=== PATIENT | male | born 1965 | race Hispanic/Latino ===

== ENCOUNTER 2017-05-21 23:02 | Observation (INO) | payer OTHER ==
[2017-05-21 23:51] VITALS: BMI 29.1
--- NOTE | 2017-05-22 00:22 | ED PDOC ---
Arrival/HPI - General Chief Complaint: Trauma Time Seen by Provider: 05/22/17 00:16 Historian: Patient - History of Present Illness Narrative History of Present Illness (Text): 05/22/17 00:22 Jean Marie Angeles is a 52 year old male, whose past medical history includes COPD, hypertension, CAD, and alcohol abuse, who presents to the Emergency department complaining of right rib pain. Patient states 6 days he "blacked out," fell on to the concrete on his right side, and hit his head. [place] [facility] [place], had CT Head performed, juan placed for a head injury, and discharged home. Patient states he woke up the next day with right lateral rib pain, which has progressively worsened over the past 5 days. Patient states pain is worse with movement, coughing, and deep inspiration. Patient states he took 2 Tramadol at home today without any significant relief. Patient denies any nausea, vomiting, diarrhea, urinary symptoms, back pain, neck pain, vision changes, focal neurological deficits, headache, dizziness, or any other complaints. Symptom Onset: Gradual Symptom Course: Worsening Activities at Onset: Rest, Light Context: Home Past Medical History - Provider Review Nursing Documentation Reviewed: Yes - Infectious Disease Hx of Infectious Diseases: None - Tetanus Immunization Tetanus Immunization: Unknown - Past Medical History Past Medical History: No Previous - Cardiac Hx Hypertension: Yes - Pulmonary Hx Asthma: Yes Hx Chronic Obstructive Pulmonary Disease (COPD): Yes - Musculoskeletal/Rheumatological Hx Degenerative Joint Disease: Yes Hx Falls: Yes - Psychiatric Hx Depression: No Hx Emotional Abuse: No Hx Physical Abuse: No Hx Substance Use: No - Surgical History Hx Appendectomy: Yes Other/Comment: L hand srugery - Anesthesia Hx Anesthesia: Yes Hx Anesthesia Reactions: No Hx Malignant Hyperthermia: No - Suicidal Assessment Feels Threatened In Home Enviroment: No Family/Social History - Physician Review Nursing Documentation Reviewed: Yes Family/Social History: Unknown Family HX Smoking Status: Heavy Smoker > 10 Cigarettes Daily Hx Alcohol Use: Yes (beer) Frequency of alcohol use: Socially Hx Substance Use: No Hx Substance Use Treatment: No Allergies/Home Meds Allergies/Adverse Reactions: Allergies No Known Allergies Allergy (Verified 05/28/13 21:23) Home Medications: Home Meds Medication Instructions Recorded Confirmed Albuterol HFA [Ventolin HFA 90 1 puff IH DAILY 06/16/14 09/26/14 mcg/actuation (8 g)] Aspirin 81 mg PO DAILY 06/16/14 09/26/14 Cilostazol [Cilostazol] 50 mg PO DAILY 06/16/14 09/26/14 Clopidogrel [Plavix] 75 mg PO DAILY 06/16/14 09/26/14 Diltiazem Hydrochloride [Diltiazem 120 mg PO DAILY 06/16/14 09/26/14 Cd] Fluticasone Nasal [Flonase] 1 spray IH DAILY 06/16/14 09/26/14 Lisinopril/Hydrochlorothiazide 1 tab PO DAILY 06/16/14 09/26/14 [Lisinopril-Hctz 20-12.5 mg Tab] Loratadine 10 mg PO DAILY 06/16/14 09/26/14 Omeprazole 20 mg PO DAILY 06/16/14 09/26/14 Tiotropium [place] [Spiriva] 18 mcg IH DAILY 06/16/14 09/26/14 Review of Systems - Physician Review All systems were reviewed & negative as marked: Yes - Review of Systems Constitutional: Normal. absent: Fevers Eyes: Normal ENT: Normal Cardiovascular: Other (+right lateral rib pain) Gastrointestinal: Normal. absent: Abdominal Pain, Diarrhea, Nausea, Vomiting Genitourinary Male: Normal. absent: Dysuria, Frequency, Hematuria, Urinary Output Changes Musculoskeletal: Normal. absent: Back Pain, Neck Pain Skin: Normal. absent: Rash Neurological: Normal. absent: Headache, Dizziness Endocrine: Normal Hemo/Lymphatic: Normal Psychiatric: Normal Physical Exam Vital Signs Reviewed: Yes Vital Signs Temp Pulse Resp BP Pulse Ox 05/22/17 05:02 76 16 154/70 H 97 05/22/17 02:20 79 16 175/99 H 99 05/21/17 23:54 97.7 F 97 H 18 224/131 H 97 Temperature: Afebrile Blood Pressure: Hypertensive Pulse: Regular Respiratory Rate: Normal Appearance: Positive for: Well-Appearing, Non-Toxic, Comfortable Mental Status: Positive for: Alert and Oriented X 3 - Systems Exam Head: Present: Atraumatic, Normocephalic Pupils: Present: PERRL Extroacular Muscles: Present: EOMI Conjunctiva: Present: Normal Mouth: Present: Moist Mucous Membranes Neck: Present: Normal Range of Motion Respiratory/Chest: Present: Clear to Auscultation, Good Air Exchange, Tender to Palpation (Right lateral rib tenderness to palpation). No: Respiratory Distress , Accessory Muscle Use Cardiovascular: Present: Regular Rate and Rhythm, Normal S1, S2. No: Murmurs Abdomen: Present: Normal Bowel Sounds. No: Tenderness, Distention, Peritoneal Signs Back: Present: Normal Inspection Upper Extremity: Present: Normal Inspection. No: Cyanosis, Edema Lower Extremity: Present: Normal Inspection. No: Edema Neurological: Present: GCS=15, CN II-XII Intact, Speech Normal Skin: Present: Warm, Dry, Normal Color. No: Rashes Psychiatric: Present: Alert, Oriented x 3, Normal Insight, Normal Concentration Medical Decision Making ED Course and Treatment: 05/22/17 00:22 Impression: 52 year old male complaining of right lateral rib pain for 5 days. Plan: -- EKG -- Chest X-ray -- XR Right Ribs -- Labs, cardiac enzymes, alcohol level -- Morphine -- Ativan -- Catapres -- Reassess and disposition Progress Notes: Please refer to downtime documentation. - Lab Interpretations Lab Results: 05/22/17 01:30 05/22/17 01:30 Lab Results 05/22/17 01:30: Alcohol, Quantitative 23 H 05/22/17 01:30: WBC 8.8 D, RBC 4.69, Hgb 16.1, Hct 45.0, MCV 95.9, MCH 34.3, MCHC 35.8, RDW 12.6, Plt Count 250, MPV 9.9 05/22/17 01:30: Sodium 133, Potassium 3.8, Chloride 96 L, Carbon Dioxide 22, Anion Gap 19, BUN 6 L, Creatinine 0.7, Est GFR ( Amer) > 60, Est GFR (Non -Af Amer) > 60, Random Glucose 100, Calcium 9.4, Total Bilirubin 0.8, AST 73 H, ALT 89 H, Alkaline Phosphatase 80, Lactate Dehydrogenase 668, Total Creatine Kinase 152, Troponin I < 0.01, Total Protein 8.1, Albumin 4.6, Globulin 3.6, Albumin/Globulin Ratio 1.3 05/22/17 01:30: PT 10.8, INR 1.00, APTT 26.0 - RAD Interpretation Radiology Orders: 05/22/17 00:22 CHEST PORTABLE [RAD] Stat 05/22/17 00:31 RIBS RIGHT [RAD] Stat - Medication Orders Current Medication Orders: Discontinued Medications Clonidine HCl (Catapres) 0.2 mg PO STAT STA Stop: 05/22/17 00:28 Folic Acid (Folic Acid) 1 mg PO DAILY [facility] Last Admin: 05/22/17 09:12 Dose: 1 mg Heparin Sodium (Porcine) (Heparin) 5,000 units SC Q8H PREETHI Last Admin: 05/22/17 16:51 Dose: 5,000 units Hydralazine HCl (Apresoline) 25 mg PO QID PRN PRN Reason: SBP >180 Last Admin: 05/22/17 16:51 Dose: 25 mg Hydrochlorothiazide (Hydrodiuril) 25 mg PO DAILY [facility] Last Admin: 05/22/17 09:08 Dose: 25 mg Ipratropium [place] (Atrovent) 0.5 mg IH [id number] [facility] Last Admin: 05/22/17 13:34 Dose: 0.5 mg Levalbuterol HCl (Xopenex) 0.63 mg IH [id number] [facility] Last Admin: 05/22/17 13:34 Dose: 0.63 mg Lorazepam (Ativan) 1 mg IVP ONCE ONE Stop: 05/22/17 00:25 Lorazepam (Ativan) 2 mg IVP Q4H PRN; Protocol PRN Reason: Anxiety Lorazepam (Ativan) 1 mg IVP Q4H PRN; Protocol PRN Reason: ALCOHOL WITHDRAWAL SYMPTONS Lorazepam (Ativan) 2 mg IVP Q4H PRN; Protocol PRN Reason: Anxiety Last Admin: 05/22/17 16:49 Dose: 2 mg Losartan Potassium (Cozaar) 100 mg PO DAILY [facility] Last Admin: 05/22/17 09:08 Dose: 100 mg Morphine Sulfate (Morphine) 4 mg IVP STAT STA Stop: 05/22/17 00:25 Morphine Sulfate (Morphine) 1 mg SC Q4 PRN PRN Reason: Pain, severe (8-10) Last Admin: 05/22/17 12:49 Dose: 1 mg Multivitamins (Thera Tab) 1 tab PO 0800 [facility] Last Admin: 05/22/17 07:58 Dose: 1 tab Nicotine (Nicoderm Cq) 1 patch TD DAILY [facility] Last Admin: 05/22/17 09:09 Dose: 1 patch Pantoprazole Sodium (Protonix Ec Tab) 40 mg PO DAILY [facility] Last Admin: 05/22/17 09:08 Dose: 40 mg Prednisone (Prednisone Tab) 40 mg PO DAILY [facility] Last Admin: 05/22/17 12:58 Dose: 40 mg Thiamine HCl (Vitamin B1 Tab) 100 mg PO DAILY [facility] Last Admin: 05/22/17 09:08 Dose: 100 mg Tramadol HCl (Ultram) 50 mg PO Q4H PRN PRN Reason: Pain, moderate (4-7) - Scribe Statement The provider has reviewed the documentation as recorded by the Hamzah Zaidi Provider Scribe Attestation: All medical record entries made by the Elvisibgerald were at my direction and personally dictated by me. I have reviewed the chart and agree that the record accurately reflects my personal performance of the history, physical exam, medical decision making, and the department course for this patient. I have also personally directed, reviewed, and agree with the discharge instructions and disposition. Disposition/Present on Arrival - Present on Arrival Any Indicators Present on Arrival: No History of DVT/PE: No History of Uncontrolled Diabetes: No Urinary Catheter: No History of Decub. Ulcer: No History Surgical Site Infection Following: None - Disposition Have Diagnosis and Disposition been Completed?: Yes Diagnosis: Alcohol withdrawal syndrome, Chest pain Disposition: HOSPITALIZED Disposition Time: 02:50 Condition: STABLE
[2017-05-22] MEDS ORDERED: Morphine 4 mg/ml ISec IVP STA (00:24)
[2017-05-22 06:05] VITALS: O2SAT 97
[2017-05-22 06:31] LABS: HEMOGLOBIN 16.1 gm/dL (14.0-18.0); MEAN CELL VOLUME 95.9 fL (80.0-105.0); MEAN CORPUSCULAR HEMOGLOBIN 34.3 pg (25.0-35.0); MEAN CORPUSCULAR HGB CONC 35.8 g/dl (31.0-37.0); MEAN PLATELET VOLUME 9.9 fl (7.0-11.0); RBC 4.69 10^6/uL (3.5-6.1); RED CELL DISTRIBUTION WIDTH 12.6 % (11.5-14.5); WHITE BLOOD COUNT 8.8 10^3/ul (4.5-11.0)
[2017-05-22 06:32] LABS: PROTHROMBIN TIME 10.8 Seconds (9.9-11.8)
[2017-05-22 06:55] LABS: ALB/GLOB RATIO 1.3 (1.1-1.8); ALBUMIN 4.6 g/dL (3.0-4.8); ALT/SGPT 89 U/L (7-56); AST/SGOT 73 U/L (15-59); BLOOD UREA NITROGEN 6 mg/dL (7-21); CALCIUM 9.4 mg/dL (8.4-10.5); GFR AFRICAN-AMERICAN > 60; GFR NON-AFRICAN AMERICAN > 60
[2017-05-22 06:56] LABS: TROPONIN I < 0.01 ng/mL
--- NOTE | 2017-05-22 07:07 | RAD ---
PROCEDURE: HISTORY: pain post fall COMPARISON: None TECHNIQUE: Three-view FINDINGS: No fracture or lytic lesion. Acromioclavicular hypertrophic arthrosis present. Moderate inferior thoracic spondylosis IMPRESSION: No fracture No pneumothorax or right pleural effusion
--- NOTE | 2017-05-22 07:08 | RAD ---
HISTORY: fever COMPARISON: 09/26/2014 FINDINGS: LUNGS: No active pulmonary disease. PLEURA: No significant pleural effusion identified, no pneumothorax apparent. CARDIOVASCULAR: Normal. OSSEOUS STRUCTURES: Inferior thoracic spondylosis. Acromioclavicular joint hypertrophic arthrosis VISUALIZED UPPER ABDOMEN: Normal. OTHER FINDINGS: None. IMPRESSION: No active disease.
[2017-05-22] MEDS: Morphine 2 mg/ml ISec SC PRN ×2 (07:57→12:49)
[2017-05-22] MEDS ORDERED: Multivitamin Therapeutic Tab PO SCH (08:00)
[2017-05-22 09:51] LABS: MEAN CELL VOLUME 97.2 fL (80.0-105.0); MEAN CORPUSCULAR HEMOGLOBIN 34.4 pg (25.0-35.0); MEAN CORPUSCULAR HGB CONC 35.4 g/dl (31.0-37.0); MEAN PLATELET VOLUME 9.8 fl (7.0-11.0); RBC 4.36 10^6/uL (3.5-6.1); RED CELL DISTRIBUTION WIDTH 12.7 % (11.5-14.5); WHITE BLOOD COUNT 8.1 10^3/ul (4.5-11.0)
[2017-05-22] MEDS ORDERED: Pantoprazole 40 mg EC Tab PO SCH (10:00)
[2017-05-22 10:12] LABS: ALB/GLOB RATIO 1.3 (1.1-1.8); ALT/SGPT 72 U/L (7-56); AST/SGOT 56 U/L (15-59); BLOOD UREA NITROGEN 7 mg/dL (7-21); GFR AFRICAN-AMERICAN > 60; GFR NON-AFRICAN AMERICAN > 60
[2017-05-22] MEDS: Ipratropium 0.02% Inhal Soln (0.5 mg/2.5 ml) UD IH SCH ×2 (11:44→13:34)
[2017-05-22] MEDS: Levalbuterol 0.63 MG/3 ML Inhal Soln UD IH SCH ×2 (11:45→13:34)
--- NOTE | 2017-05-22 12:50 | CT ---
CT chest without IV contrast Indication: Chest x-ray performed 05/22/17 Technique: Contiguous axial images were obtained through the chest without intravenous contrast enhancement. Sagittal and coronal reconstructions were generated and reviewed. This CT exam was performed using 1 or more of the falling dose reduction techniques: Automated exposure control, adjustment of the MAA and/or kV according to patient size, and/or use of iterative reconstruction technique. Radiation dose (DLP): Not available. Comparison: None available Findings: Visualized portions of the inferior thyroid gland appear unremarkable. The unenhanced mediastinal and hilar vascular structures appear grossly unremarkable except for atherosclerotic calcifications. The heart appears within normal limits of size. Sub cm prevascular mediastinal lymph nodes, nonspecific. Atherosclerotic calcifications of the aorta and branches. Dense coronary artery calcifications. Thin linear filling defect within the left mainstem bronchus, may reflect mucus. Emphysematous changes. No focal consolidation. Trace right pleural effusion. No pneumothorax. Scattered sub cm nodular densities. For example: 3 mm right upper lobe (series 4, image 14) ; 5 mm right anterior upper lobe (image 19) ; 3 mm right upper lobe (image 23) 3 mm right middle lobe (image 45) ; 3 mm along the fissure (image 52) ; 3 mm left lower lobe (image 65) ; 4 mm (image 63). Small hiatal hernia. Limited visualization of the noncontrast upper abdomen demonstrates heterogeneous appearance of the liver with regions of severe focal fatty infiltration. Degenerative changes of the spine. Bilateral gynecomastia. Impression: Emphysematous changes. No pneumothorax. Trace right pleural effusion. Scattered sub cm nodular densities as above measuring up to approximately 5 mm. Guidelines by the Fleischner society (radiology 2005; 237:395-400) suggests that in patients with low risk for lung cancer, nodules from 5 mm to 6 mm in diameter should have follow-up in approximately 12 months. In patients with high-risk, such as those were smokers, follow-up is recommended in 6 months. Patients with a known malignancy or risk for metastases should receive 3 month follow-up. Thin linear filling defect within the left mainstem bronchus, may reflect mucus. Small hiatal hernia. Limited visualization of the noncontrast upper abdomen demonstrates heterogeneous appearance of the liver with regions of severe focal fatty infiltration. Additional findings as above.
--- NOTE | 2017-05-22 17:37 | CARD ---
APPROVED REPORT EKG Measurement Heart [id number] FL [id number] <Conclusion> Normal sinus rhythm Left axis deviation Prolonged QT Abnormal ECG
[2017-05-22 18:03] VITALS: BP 166/106; PULSE 81; RESP 20; TEMP 98.1
--- NOTE | 2017-05-22 20:45 | CP.PCM.DIS ---
<[employer] - Last Filed: 05/22/17 20:32> Provider - Provider Date of Admission: 05/22/17 02:50 Attending physician: Crispin Mathew MD Time Spent in preparation of Discharge (in minutes): 45 Diagnosis - Discharge Diagnosis (1) Alcohol withdrawal seizure Status: Acute Hospital Course - Lab Results Lab Results: Most Recent Lab Values WBC 8.1 10^3/ul (4.5-11.0) 05/22/17 09:40 RBC 4.36 10^6/uL (3.5-6.1) 05/22/17 09:40 Hgb 15.0 gm/dL (14.0-18.0) 05/22/17 09:40 Hct 42.4 % (42.0-52.0) 05/22/17 09:40 MCV 97.2 fL (80.0-105.0) 05/22/17 09:40 MCH 34.4 pg (25.0-35.0) 05/22/17 09:40 MCHC 35.4 g/dl (31.0-37.0) 05/22/17 09:40 RDW 12.7 % (11.5-14.5) 05/22/17 09:40 Plt Count 218 10^3/uL (120.0-450.0) 05/22/17 09:40 MPV 9.8 fl (7.0-11.0) 05/22/17 09:40 PT 10.8 Seconds (9.9-11.8) 05/22/17 01:30 INR 1.00 (0.93-1.08) 05/22/17 01:30 APTT 26.0 Seconds (23.7-30.8) 05/22/17 01:30 Sodium 132 mmol/L (132-148) 05/22/17 09:40 Potassium 4.3 mmol/L (3.6-5.0) 05/22/17 09:40 Chloride 97 mmol/L (95-110) 05/22/17 09:40 Carbon Dioxide 27 mmol/L (21-33) 05/22/17 09:40 Anion Gap 12 (10-20) 05/22/17 09:40 BUN 7 mg/dL (7-21) 05/22/17 09:40 Creatinine 0.7 mg/dL (0.5-1.4) 05/22/17 09:40 Est GFR ( Amer) > 60 05/22/17 09:40 Est GFR (Non-Af Amer) > 60 05/22/17 09:40 Random Glucose 106 mg/dL (70-110) 05/22/17 09:40 Calcium 9.0 mg/dL (8.4-10.5) 05/22/17 09:40 Phosphorus 3.2 mg/dL (2.5-4.5) 05/22/17 09:40 Magnesium 2.0 mg/dL (1.7-2.2) 05/22/17 09:40 Total Bilirubin 0.8 mg/dL (0.2-1.3) 05/22/17 09:40 AST 56 U/L (15-59) 05/22/17 09:40 ALT 72 U/L (7-56) H 05/22/17 09:40 Alkaline Phosphatase 77 U/L (38-133) 05/22/17 09:40 Lactate Dehydrogenase 668 U/L (333-699) 05/22/17 01:30 Total Creatine Kinase 152 U/L (35-230) 05/22/17 01:30 Troponin I < 0.01 ng/mL 05/22/17 17:00 Total Protein 7.0 g/dL (5.8-8.3) 05/22/17 09:40 Albumin 4.0 g/dL (3.0-4.8) 05/22/17 09:40 Globulin 3.0 gm/dL 05/22/17 09:40 Albumin/Globulin Ratio 1.3 (1.1-1.8) 05/22/17 09:40 Alcohol, Quantitative 23 mg/dL (0-10) H 05/22/17 01:30 - Hospital Course Hospital Course: 52 yo M with a PMHx of COPD, NE, HTN, EtOH abuse presented c/o of right rib pain. Pt states that he blacked out 2/2 alcohol abuse 6 days ago and feel on the concrete on his right side and hit his head. Pt was initially evaluated at [facility] [place] a head CT was performed and juan placed for a head injury before being discharged home. In [place] [facility] [place], he complained of worsening rib pain. Basic labs and imaging were performed. Pt had slightly elevated LFTs and an EtOH level of 23. CXR and rib x-ray showed no acute disease. Pt was admitted to the hospital for evaluation and treatment of right sided lateral chest pain and possible ETOH withdrawal. Pt was put on CIWA protocol. Today, pt stated that he did not want to stay anymore and asked to leave AMA. Pt stated that he came only for the rib pain, which he said is resolved. Pt was informed on the risks of leaving AMA, including but not limited to further morbidity and mortality. The pt understood and agreed to sign out AMA. Discharge Exam - Head Exam Head Exam: ATRAUMATIC, NORMOCEPHALIC - Eye Exam Eye Exam: EOMI, PERRL - ENT Exam ENT Exam: Mucous Membranes Moist - Neck Exam Neck exam: Full Rom - Respiratory Exam Respiratory Exam: Clear to PA & Lateral. absent: Rales, Rhonchi, Wheezes, Respiratory Distress - Cardiovascular Exam Cardiovascular Exam: RRR. absent: Diastolic murmur, Gallop, Rubs, Systolic Murmur - Extremities Exam Extremities exam: full ROM - Neurological Exam Neurological exam: Alert, Oriented x3 - Psychiatric Exam Psychiatric exam: Normal Affect - Skin Skin Exam: Dry, Intact, Normal Color, Warm Discharge Plan - Follow Up Plan Condition: STABLE Disposition: AGAINST MEDICAL ADVICE Patient education suggested?: Yes Additional Instructions: -Patient instructed on the risks of leaving AMA, including the risk of further morbidity and mortality -Alcohol cessation -Follow up with PMD in 2-3 days <Alexander SPENCER,[facility] - Last Filed: 05/23/17 12:17> Provider - Provider Date of Admission: 05/22/17 02:50 Attending physician: Crispin Mathew MD Hospital Course - Lab Results Lab Results: Most Recent Lab Values WBC 8.1 10^3/ul (4.5-11.0) 05/22/17 09:40 RBC 4.36 10^6/uL (3.5-6.1) 05/22/17 09:40 Hgb 15.0 gm/dL (14.0-18.0) 05/22/17 09:40 Hct 42.4 % (42.0-52.0) 05/22/17 09:40 MCV 97.2 fL (80.0-105.0) 05/22/17 09:40 MCH 34.4 pg (25.0-35.0) 05/22/17 09:40 MCHC 35.4 g/dl (31.0-37.0) 05/22/17 09:40 RDW 12.7 % (11.5-14.5) 05/22/17 09:40 Plt Count 218 10^3/uL (120.0-450.0) 05/22/17 09:40 MPV 9.8 fl (7.0-11.0) 05/22/17 09:40 PT 10.8 Seconds (9.9-11.8) 05/22/17 01:30 INR 1.00 (0.93-1.08) 05/22/17 01:30 APTT 26.0 Seconds (23.7-30.8) 05/22/17 01:30 Sodium 132 mmol/L (132-148) 05/22/17 09:40 Potassium 4.3 mmol/L (3.6-5.0) 05/22/17 09:40 Chloride 97 mmol/L (95-110) 05/22/17 09:40 Carbon Dioxide 27 mmol/L (21-33) 05/22/17 09:40 Anion Gap 12 (10-20) 05/22/17 09:40 BUN 7 mg/dL (7-21) 05/22/17 09:40 Creatinine 0.7 mg/dL (0.5-1.4) 05/22/17 09:40 Est GFR ( Amer) > 60 05/22/17 09:40 Est GFR (Non-Af Amer) > 60 05/22/17 09:40 Random Glucose 106 mg/dL (70-110) 05/22/17 09:40 Calcium 9.0 mg/dL (8.4-10.5) 05/22/17 09:40 Phosphorus 3.2 mg/dL (2.5-4.5) 05/22/17 09:40 Magnesium 2.0 mg/dL (1.7-2.2) 05/22/17 09:40 Total Bilirubin 0.8 mg/dL (0.2-1.3) 05/22/17 09:40 AST 56 U/L (15-59) 05/22/17 09:40 ALT 72 U/L (7-56) H 05/22/17 09:40 Alkaline Phosphatase 77 U/L (38-133) 05/22/17 09:40 Lactate Dehydrogenase 668 U/L (333-699) 05/22/17 01:30 Total Creatine Kinase 152 U/L (35-230) 05/22/17 01:30 Troponin I < 0.01 ng/mL 05/22/17 17:00 Total Protein 7.0 g/dL (5.8-8.3) 05/22/17 09:40 Albumin 4.0 g/dL (3.0-4.8) 05/22/17 09:40 Globulin 3.0 gm/dL 05/22/17 09:40 Albumin/Globulin Ratio 1.3 (1.1-1.8) 05/22/17 09:40 Alcohol, Quantitative 23 mg/dL (0-10) H 05/22/17 01:30 Attending/Attestation - Attestation I have personally seen and examined this patient.: Yes I have fully participated in the care of the patient.: Yes I have reviewed all pertinent clinical information, including history, physical exam and plan: Yes
--- NOTE | 2017-05-24 08:22 | CP.PCM.HP ---
History of Present Illness - History of Present Illness History of Present Illness: Please refer to "[facility] downtime" notes for H&P Present on Admission - Present on Admission Any Indicators Present on Admission: No Past Patient History - Infectious Disease Hx of Infectious Diseases: None - Tetanus Immunizations Tetanus Immunization: Unknown - Past Social History Smoking Status: Heavy Smoker > 10 Cigarettes Daily - CARDIAC Hx Hypertension: Yes - PULMONARY Hx Asthma: Yes Hx Chronic Obstructive Pulmonary Disease (COPD): Yes - MUSCULOSKELETAL/RHEUMATOLOGICAL Hx Degenerative Joint Disease: Yes Hx Falls: Yes - PSYCHIATRIC Hx Depression: No Hx Emotional Abuse: No Hx Physical Abuse: No Hx Substance Use: No - SURGICAL HISTORY Hx Appendectomy: Yes Other/Comment: L hand srugery - ANESTHESIA Hx Anesthesia: Yes Hx Anesthesia Reactions: No Hx Malignant Hyperthermia: No Meds Allergies/Adverse Reactions: Allergies Allergy/AdvReac Type Severity Reaction Status Date / Time No Known Allergies Allergy Verified 05/28/13 21:23 Results - Vital Signs Recent Vital Signs: Last Vital Signs Temp 98.1 F 05/22/17 18:00 Pulse 81 05/22/17 18:00 Resp 20 05/22/17 18:00 BP 166/106 H 05/22/17 18:00 Pulse Ox 97 05/22/17 05:02 - Labs Result Diagrams: 05/22/17 09:40 05/22/17 09:40 Attending/Attestation - Attestation I have personally seen and examined this patient.: Yes I have fully participated in the care of the patient.: Yes I have reviewed all pertinent clinical information: Yes Notes (Text): -I agree with the H&P completed by the resident physician. -The patient will be admitted for same day observation for acute ETOH w/d and chest pain (r/o)
== END 2017-05-22 20:08 | disposition left against medical advice (07) ==
LOC: ED 23:02 → ERH 05-22 02:50 → ED 05-22 06:08 → 2RNO 05-22 06:27
PROVIDERS: ADMIT Hospitalist; ATTEND Hospitalist
DX: F10.239 Alcohol dependence with withdrawal, unspecified (principal); R07.89 Other chest pain; R07.81 Pleurodynia; I25.10 Atherosclerotic heart disease of native coronary artery without angina pectoris; R56.9 Unspecified convulsions; J44.9 Chronic obstructive pulmonary disease, unspecified; I10 Essential (primary) hypertension; S09.90XD Unspecified injury of head, subsequent encounter; Y90.1 Blood alcohol level of 20-39 mg/100 ml; Z79.82 Long term (current) use of aspirin; Z79.02 Long term (current) use of antithrombotics/antiplatelets
CPT/HCPCS: 71010; 71100; 71250; 80053; 80320; 82550; 83615; 83735; 84100; 84484; 85027; 85610; 85730; 93005; 94640; 99285; G0378; J1644; J2060; J2270

== ENCOUNTER 2017-12-18 14:41 | Emergency (ER) | payer OTHER ==
[2017-12-18 14:41] VITALS: BMI 29.1
[2017-12-18 15:07] VITALS: TEMP 98.3
--- NOTE | 2017-12-18 15:55 | RAD ---
PROCEDURE: Left Foot Radiographs. HISTORY: foot pain s/p trauma COMPARISON: None. FINDINGS: BONES: Normal. No fracture. JOINTS: Normal. SOFT TISSUES: Normal. OTHER FINDINGS: None. IMPRESSION: Normal left foot radiographs.
--- NOTE | 2017-12-18 16:00 | ED PDOC ---
Arrival/HPI - General Chief Complaint: Lower Extremity Problem/Injury Time Seen by Provider: 12/18/17 15:03 Historian: Patient - History of Present Illness Narrative History of Present Illness (Text): 12/18/17 15:57 52yo male with PMHx of hypertension and COPD who present with complaint of left foot pain s/p trauma 4days ago. Patient reports slip and fall 4days ago. Started having pain with ambulation s/p. States he applied ice and keep foot elevated. He came to ED today because he noticed discoloration of his foot. states the swelling improved. Did not take any medication for the pain. Past Medical History - Provider Review Nursing Documentation Reviewed: Yes - Infectious Disease Hx of Infectious Diseases: None - Tetanus Immunization Tetanus Immunization: Unknown - Past Medical History Past Medical History: No Previous - Cardiac Hx Cardiac Disorders: Yes Hx OR: Yes Hx Hypertension: Yes - Pulmonary Hx Asthma: Yes Hx Chronic Obstructive Pulmonary Disease (COPD): Yes - Neurological Hx Neurological Disorder: No - HEENT Hx HEENT Disorder: No - Renal Hx Renal Disorder: No - Endocrine/Metabolic Hx Endocrine Disorders: No - Hematological/Oncological Hx Blood Disorders: No - Integumentary Hx Dermatological Disorder: No - Musculoskeletal/Rheumatological Hx Musculoskeletal Disorders: Yes Hx Degenerative Joint Disease: Yes Hx Falls: Yes - Gastrointestinal Hx Gastrointestinal Disorders: Yes Hx Gastroesophageal Reflux: Yes - Genitourinary/Gynecological Hx Genitourinary Disorders: No - Psychiatric Hx Psychophysiologic Disorder: Yes Hx Anxiety: Yes Hx Depression: Yes Hx Emotional Abuse: No Hx Physical Abuse: No Hx Substance Use: No - Surgical History Hx Appendectomy: Yes Other/Comment: L hand srugery - Anesthesia Hx Anesthesia: Yes Hx Anesthesia Reactions: No Hx Malignant Hyperthermia: No - Suicidal Assessment Feels Threatened In Home Enviroment: No Family/Social History - Physician Review Nursing Documentation Reviewed: Yes Family/Social History: Unknown Family HX Smoking Status: Heavy Smoker > 10 Cigarettes Daily Hx Alcohol Use: Yes (beer) Frequency of alcohol use: Daily Hx Substance Use: No Hx Substance Use Treatment: No Allergies/Home Meds Allergies/Adverse Reactions: Allergies No Known Allergies Allergy (Verified 05/28/13 21:23) Home Medications: Home Meds Medication Instructions Recorded Confirmed Albuterol HFA [Ventolin HFA 90 1 puff IH DAILY 06/16/14 12/18/17 mcg/actuation (8 g)] Aspirin 81 mg PO DAILY 06/16/14 12/18/17 Fluticasone Nasal [Flonase] 1 spray IH DAILY 06/16/14 12/18/17 Tiotropium [place] [Spiriva] 18 mcg IH DAILY 06/16/14 12/18/17 traMADol [Ultram] 50 mg PO BID 12/18/17 12/18/17 Review of Systems - Physician Review All systems were reviewed & negative as marked: Yes - Review of Systems Constitutional: Normal Eyes: Normal ENT: Normal Respiratory: Normal Cardiovascular: Normal Gastrointestinal: Normal Genitourinary Male: Normal Musculoskeletal: Arthralgias (Left foot pain) Skin: Normal Neurological: Normal Endocrine: Normal Hemo/Lymphatic: Normal Psychiatric: Normal Physical Exam Vital Signs Reviewed: Yes Vital Signs Temp Pulse Resp BP Pulse Ox 12/18/17 14:48 98.3 F 85 16 169/68 H 94 L Temperature: Afebrile Blood Pressure: Normal Pulse: Regular Respiratory Rate: Normal Appearance: Positive for: Well-Appearing, Non-Toxic, Comfortable Pain Distress: None Mental Status: Positive for: Alert and Oriented X 3 - Systems Exam Head: Present: Atraumatic, Normocephalic Pupils: Present: PERRL Extroacular Muscles: Present: EOMI Conjunctiva: Present: Normal Mouth: Present: Moist Mucous Membranes Neck: Present: Normal Range of Motion Respiratory/Chest: Present: Clear to Auscultation, Good Air Exchange. No: Respiratory Distress, Accessory Muscle Use Cardiovascular: Present: Regular Rate and Rhythm, Normal S1, S2. No: Murmurs Abdomen: Present: Normal Bowel Sounds. No: Tenderness, Distention, Peritoneal Signs Back: Present: Normal Inspection Upper Extremity: Present: Normal Inspection. No: Cyanosis, Edema Lower Extremity: Present: NORMAL PULSES, Normal ROM, Tenderness (DMid/distal left dorsal foot), Swelling (Mild swelling of left foot noted), Neurovascularly Intact. No: Edema, Erythema (Ecchymosis of left distal dorsal foot noted), Deformity Neurological: Present: GCS=15, CN II-XII Intact, Speech Normal Skin: Present: Warm, Dry, Normal Color. No: Rashes Psychiatric: Present: Alert, Oriented x 3, Normal Insight, Normal Concentration Medical Decision Making ED Course and Treatment: 12/18/17 16:00 Left foot xray - No acute fracture noted Rachid wrap applied Result was DW the pt Advised to RICE foot Referred to his PMd/orth - RAD Interpretation Radiology Orders: 12/18/17 15:09 FOOT LEFT 3 VIEWS ROUTINE [RAD] Stat - Medication Orders Current Medication Orders: Discontinued Medications Ibuprofen (Motrin Tab) 600 mg PO STAT STA Stop: 12/18/17 15:10 Last Admin: 12/18/17 15:28 Dose: 600 mg MAR Pain/Vitals Document 12/18/17 15:28 EQ (Rec: 12/18/17 15:29 EQ [facility] [id number]) Pain Reassessment Is This A Pain ReAssessment? No Sleep Is patient sleeping during reassessment? No Presence of Pain Presence of Pain Yes Pain Scale Used Pain Scale Used Numeric Disposition/Present on Arrival - Present on Arrival Any Indicators Present on Arrival: No History of DVT/PE: No History of Uncontrolled Diabetes: No Urinary Catheter: No History of Decub. Ulcer: No History Surgical Site Infection Following: None - Disposition Have Diagnosis and Disposition been Completed?: Yes Diagnosis: Foot sprain Disposition: HOME/ ROUTINE Disposition Time: 16:05 Patient Plan: Discharge Condition: STABLE Additional Instructions: Rest, ice, compress and elevate foot Follow up with your Doctor/Orthopedist Return to ED for any new or worsening symptom Prescriptions: Ibuprofen [Motrin Tab] 600 mg PO Q6 #20 tab Referrals: Migdalia Morillo MD [Primary Care Provider] - Follow up with primary Real Kidd DO [Staff Provider] - Follow up with primary
[2017-12-18 16:16] VITALS: BP 165/61; PULSE 75; RESP 18; O2SAT 95
== END 2017-12-18 16:33 | disposition home or self-care (01) ==
LOC: ED 14:41
DX: S93.602A Unspecified sprain of left foot, initial encounter (principal); W01.0XXA Fall on same level from slipping, tripping and stumbling without subsequent striking against object, initial encounter; I10 Essential (primary) hypertension; J44.9 Chronic obstructive pulmonary disease, unspecified; F17.210 Nicotine dependence, cigarettes, uncomplicated

== ENCOUNTER 2017-12-22 17:33 | Emergency (ER) | payer OTHER ==
--- NOTE | 2017-12-22 17:49 | ED PDOC ---
Arrival/HPI - General Time Seen by Provider: 12/22/17 17:45 Historian: Patient - History of Present Illness Narrative History of Present Illness (Text): 12/22/17 17:49 52 year old male pmh including htn and copd, nkda, here with the girlfriend for alcohol intoxication. Pt. stated that he has chronic alcohol and drug abuse, been through the drug detox about 10 years ago but never the alcohol detox, last drink was prior to arrival, stated that he has not been eating well PLUS drinking alot, stated that he is not homicidal or suicidal ideation, no auditory or visual hallucination, no night sweat, no rash, no numbness or tingling, no palpitation or chest pain, no abdominal or pelvic pain, no nausea or vomiting, no other medical or psychological complaints. Past Medical History - Provider Review Nursing Documentation Reviewed: Yes - Infectious Disease Hx of Infectious Diseases: None - Tetanus Immunization Tetanus Immunization: Unknown - Past Medical History Past Medical History: No Previous - Cardiac Hx Cardiac Disorders: Yes Hx NC: Yes Hx Hypertension: Yes - Pulmonary Hx Asthma: Yes Hx Chronic Obstructive Pulmonary Disease (COPD): Yes - Neurological Hx Neurological Disorder: No - HEENT Hx HEENT Disorder: No - Renal Hx Renal Disorder: No - Endocrine/Metabolic Hx Endocrine Disorders: No - Hematological/Oncological Hx Blood Disorders: No - Integumentary Hx Dermatological Disorder: No - Musculoskeletal/Rheumatological Hx Musculoskeletal Disorders: Yes Hx Degenerative Joint Disease: Yes Hx Falls: Yes - Gastrointestinal Hx Gastrointestinal Disorders: Yes Hx Gastroesophageal Reflux: Yes - Genitourinary/Gynecological Hx Genitourinary Disorders: No - Psychiatric Hx Psychophysiologic Disorder: (etoh, tobacco) Hx Depression: No Hx Substance Use: No - Surgical History Hx Appendectomy: Yes Other/Comment: L hand srugery - Anesthesia Hx Anesthesia: Yes Hx Anesthesia Reactions: No Hx Malignant Hyperthermia: No - Suicidal Assessment Feels Threatened In Home Enviroment: No Family/Social History - Physician Review Nursing Documentation Reviewed: Yes Family/Social History: Unknown Family HX Smoking Status: Heavy Smoker > 10 Cigarettes Daily Hx Alcohol Use: Yes (beer) Hx Substance Use: No Hx Substance Use Treatment: No Allergies/Home Meds Allergies/Adverse Reactions: Allergies No Known Allergies Allergy (Verified 05/28/13 21:23) Home Medications: Home Meds Medication Instructions Recorded Confirmed Albuterol HFA [Ventolin HFA 90 1 puff IH DAILY 06/16/14 12/18/17 mcg/actuation (8 g)] Aspirin 81 mg PO DAILY 06/16/14 12/18/17 Fluticasone Nasal [Flonase] 1 spray IH DAILY 06/16/14 12/18/17 Tiotropium [place] [Spiriva] 18 mcg IH DAILY 06/16/14 12/18/17 traMADol [Ultram] 50 mg PO BID 12/18/17 12/18/17 Review of Systems - Review of Systems Constitutional: absent: Fatigue, Fevers Eyes: absent: Vision Changes ENT: absent: Hearing Changes Respiratory: absent: SOB, Cough Cardiovascular: absent: Chest Pain Gastrointestinal: absent: Abdominal Pain, Nausea, Vomiting Musculoskeletal: absent: Arthralgias, Myalgias Skin: absent: Rash, Pruritis Neurological: absent: Headache, Dizziness Psychiatric: Other (+alcohol intoxication). absent: Anxiety, Depression, Suicidal Ideation Physical Exam - Systems Exam Head: Present: Atraumatic, Normocephalic Pupils: Present: PERRL Extroacular Muscles: Present: EOMI Conjunctiva: Present: Normal Mouth: Present: Moist Mucous Membranes Neck: Present: Normal Range of Motion Respiratory/Chest: Present: Clear to Auscultation, Good Air Exchange. No: Respiratory Distress, Accessory Muscle Use Cardiovascular: Present: Regular Rate and Rhythm, Normal S1, S2. No: Murmurs Abdomen: Present: Normal Bowel Sounds. No: Tenderness, Distention, Peritoneal Signs Back: Present: Normal Inspection Upper Extremity: Present: Normal Inspection. No: Cyanosis, Edema Lower Extremity: Present: Normal Inspection. No: Edema Neurological: Present: GCS=15, CN II-XII Intact, Speech Normal Skin: Present: Warm, Dry, Normal Color. No: Rashes Psychiatric: Present: Alert, Oriented x 3, Normal Insight, Normal Concentration. No: Anxious, Depressed Mood, Suicidal Ideation Medical Decision Making ED Course and Treatment: 12/22/17 18:21 -labs/uds -IV banana bag -monitoring manager -observe and reassess 12/22/17 19:56 -Labs are non-significant except Mg 2.5, and Alcohol 396 -Pt. has no signs of withdrawal, girlfriend at the bedside and wants to go home , refused to be further evaluated, no detox in this facility but list of detox units given to the patient and girlfriend. -Girlfriend will take him home. -I discussed with DR. Avalos and agreed the patient can be discharged home. -Discharge home with list of detox unit, please go to the nearest unit for detox for your alcohol if you wishes, return to the ER for any new or worsening signs or symptoms. - Lab Interpretations Lab Results: 12/22/17 18:15 12/22/17 18:15 Lab Results 12/22/17 18:15: Salicylates < 1 L, Acetaminophen < 10.0 L 12/22/17 18:15: WBC 6.1 D, RBC 4.91, Hgb 16.8, Hct 48.4, MCV 98.6, MCH 34.2, MCHC 34.7, RDW 12.9, Plt Count 205, MPV 9.8, Gran % 52.5, Lymph % (Auto) 36.1 H , [place] % (Auto) 9.6 H, Eos % (Auto) 1.5, Baso % (Auto) 0.3, Gran # 3.22, Lymph # (Auto) 2.2, [place] # (Auto) 0.6, Eos # (Auto) 0.1, Baso # (Auto) 0.02 12/22/17 18:15: Alcohol, Quantitative 396 H* 12/22/17 18:15: Sodium 145, Potassium 4.2, Chloride 103, Carbon Dioxide 27, Anion Gap 19, BUN 5 L, Creatinine 0.7 L, Est GFR ( Amer) > 60, Est GFR ( Non-Af Amer) > 60, Random Glucose 115 H, Calcium 9.5, Magnesium 2.5 H, Total Bilirubin 0.5, AST 92 H, ALT 76 H, Alkaline Phosphatase 82, Total Creatine Kinase 125, Total Protein 7.9, Albumin 4.4, Globulin 3.5, Albumin/Globulin Ratio 1.3 - Medication Orders Current Medication Orders: Multivitamins/Vitamin C 10 ml/Thiamine HCl 100 mg/ Folic Acid 1 mg/ Sodium Chloride 1,011.2 mls @ 1,000 mls/hr IV .Q1H1M ONE Stop: 12/22/17 20:00 Last Admin: 12/22/17 19:18 Dose: 1,000 mls/hr eMAR Start Stop Document 02/25/18 19:18 EQ (Rec: 12/22/17 19:18 EQ [id number]) Intravenous Solution Start Date 12/22/17 Start Time 19:18 - PA / GAME PROGRAMMER / Resident Statement MD/DO has reviewed & agrees with the documentation as recorded. Disposition/Present on Arrival - Present on Arrival Any Indicators Present on Arrival: No History of DVT/PE: No History of Uncontrolled Diabetes: No Urinary Catheter: No History of Decub. Ulcer: No History Surgical Site Infection Following: None - Disposition Have Diagnosis and Disposition been Completed?: Yes Diagnosis: Alcohol intoxication Disposition: HOME/ ROUTINE Disposition Time: 18:22 Patient Plan: Discharge Patient Problems: Current Active Problems Problem Status Onset Alcohol intoxication Acute Condition: GOOD Additional Instructions: -Discharge home with list of detox unit, please go to the nearest unit for detox for your alcohol if you wishes, return to the ER for any new or worsening signs or symptoms. Referrals: Migdalia Morillo MD [Primary Care Provider] - Follow up with primary Forms: WORK NOTE
[2017-12-22 18:01] VITALS: BMI 27.8
[2017-12-22 18:37] LABS: ALB/GLOB RATIO 1.3 (1.1-1.8); ALBUMIN 4.4 g/dL (3.0-4.8); ALT/SGPT 76 U/L (7-56); AST/SGOT 92 U/L (17-59); BASO # 0.02 K/mm3 (0.0-2.0); BASO % 0.3 % (0.0-3.0); BLOOD UREA NITROGEN 5 mg/dL (7-21); CALCIUM 9.5 mg/dL (8.4-10.5); EOS # 0.1 (0.0-0.7); EOS % 1.5 % (1.5-5.0); GFR AFRICAN-AMERICAN > 60; GFR NON-AFRICAN AMERICAN > 60; GRAN # 3.22 (1.4-6.5); GRAN % 52.5 % (50.0-68.0); HEMOGLOBIN 16.8 g/dL (14.0-18.0); LYMPH # 2.2 (1.2-3.4); LYMPH % 36.1 % (22.0-35.0); MAGNESIUM 2.5 mg/dL (1.7-2.2); MEAN CELL VOLUME 98.6 fl (80.0-105.0); MEAN CORPUSCULAR HEMOGLOBIN 34.2 pg (25.0-35.0); MEAN CORPUSCULAR HGB CONC 34.7 g/dl (31.0-37.0); MEAN PLATELET VOLUME 9.8 fl (7.0-11.0); MONO # 0.6 (0.1-0.6); MONO % 9.6 % (1.0-6.0); RBC 4.91 10^6/uL (3.5-6.1); RED CELL DISTRIBUTION WIDTH 12.9 % (11.5-14.5); WHITE BLOOD COUNT 6.1 10^3/ul (4.5-11.0)
[2017-12-22 18:47] LABS: ACETAMINOPHEN < 10.0 ug/ml (10.0-20.0); SALICYLATE < 1 mg/dL (2.0-20.0)
[2017-12-22] MEDS ORDERED: Multivitamin (MVI) 10 ML, Thiamine 100 MG, Folic Acid 1 MG in Sodium Chloride 0.9% 1,00... IV ONE (19:00)
[2017-12-22 20:12] VITALS: BP 114/84; PULSE 95; RESP 18; TEMP 97.8; O2SAT 96
== END 2017-12-22 20:23 | disposition home or self-care (01) ==
LOC: ED 17:33
DX: F10.129 Alcohol abuse with intoxication, unspecified (principal); Y90.8 Blood alcohol level of 240 mg/100 ml or more; I25.2 Old myocardial infarction; I10 Essential (primary) hypertension; F17.210 Nicotine dependence, cigarettes, uncomplicated; F19.10 Other psychoactive substance abuse, uncomplicated
CPT/HCPCS: 80053; 80320; 80329; 82550; 83735; 85025; 96374; 99284; J3411; J7040